=== PATIENT | female | born 1965 | race Caucasian/White ===

== ENCOUNTER 2023-01-12 14:45 | Outpatient (CLI) | payer SELFPAY ==
--- NOTE | ~2023-01-12 | XR_ITS ---
EXAMINATION: XR abdomen/kub 1V INDICATION: Constipation TECHNIQUE: Supine views of the abdomen were obtained on three radiographs. COMPARISON: None FINDINGS: A moderate volume of colonic stool is present. The bowel gas pattern is normal. There are n o dilated loops of bowel. There is mild atelectasis of the left lung base. There is a phlebolith of t he left pelvis. Mild osteitis pubis is noted. There is mild lumbar spondylosis. IMPRESSION: 1. Constipation. Reviewed, dictated and finalized at location B. IMPRESSION: 1. Constipation.
[2023-01-12 15:12] LABS: Basophils Absolute Auto 0.08 K/mm3 (0.00-0.10); Basophils Percent Auto 1.3 % (0.0-1.0); Eosinophils Absolute Auto 0.32 K/mm3 (0.02-0.50); Hematocrit 26.4 % (35.0-49.0); Immature Granulocyte Absolute 0.02 K/mm3 (0.00-0.00); Immature Granulocyte Percent A 0.3 % (0.0-0.0); Immature Platelet Fraction Pct 0.6 % (1.0-7.0); Lymphocytes Absolute Auto 2.13 K/mm3 (1.10-4.50); Lymphocytes Percent Auto 33.3 % (18.0-42.0); Mean Corpuscular HGB Conc 30.3 g/dL (32.0-36.0); Mean Corpuscular Volume 79.3 fL (78.0-102.0); Mean Platelet Volume 8.5 fl (9.2-11.8); Monocytes Absolute Auto 0.62 K/mm3 (0.10-0.90); Monocytes Percent Auto 9.7 % (2.0-11.0); Neutrophils Absolute Auto 3.2 K/mm3 (1.7-7.2); Neutrophils Percent Auto 50.4 % (50.0-70.0); Platelet Count Result 617 K/mm3 (150-420); Red Blood Count 3.33 M/mm3 (4.20-5.40); Red Cell Distribution Width 13.9 % (11.6-14.4); White Blood Count 6.4 K/mm3 (4.8-10.8)
[2023-01-12 16:00] LABS: Alanine Aminotransferase 12 U/L (14-59); Albumin Level 3.3 g/dL (3.4-5.0); Alkaline Phosphatase 129 U/L (46-116); Amylase 45 U/L (25-115); Anion Gap 10 mmol/L (8-16); Aspartate Amino Transferase 11 U/L (15-37); Bilirubin,Total 0.3 mg/dL (0.00-1.00); Blood Urea Nitrogen 14 mg/dL (7-18); Calcium 8.9 mg/dL (8.5-10.1); Carbon Dioxide 27 mmol/L (21-32); Chloride 103 mmol/L (98-108); Estimated Glomerular Filt Rate > 60; Free T4 Free Thyroxine 1.19 ng/dL (0.76-1.46); Glucose 94 mg/dL (70-99); Lipase 20 U/L (16-77); Magnesium 2.1 mg/dL (1.8-2.4); Osmolality Calculated 290 mOsm/kg (285-295); Potassium 4.4 mmol/L (3.5-5.1); Sodium 140 mmol/L (136-145); Thyroid Stimulating Hormone 2.14 uIU/mL (0.36-3.74); Total Protein 6.9 g/dL (6.4-8.2)
[2023-01-16 21:16] LABS: Vitamin D 25 Hydroxy 13 ng/mL (30-100)
== END 2023-01-12 14:46 | disposition home or self-care (01) ==
LOC: CHSLAB 14:47
PROVIDERS: PCP Nurse Practitioner Family; Visit Provider Nurse Practitioner Family
DX: K59.00 Constipation, unspecified (principal); R19.5 Other fecal abnormalities; R11.2 Nausea with vomiting, unspecified; R39.198 Other difficulties with micturition; L65.9 Nonscarring hair loss, unspecified; Z79.899 Other long term (current) drug therapy
CPT/HCPCS: 36415; 74018; 80053; 82150; 82306; 83690; 83735; 84439; 84443; 85025; 85055

== ENCOUNTER 2023-01-13 12:08 | Outpatient (CLI) | payer SELFPAY ==
[2023-01-13 12:48] LABS: Occult Blood Positive (Negative)
== END 2023-01-13 12:09 | disposition home or self-care (01) ==
LOC: CHSLAB 12:10
PROVIDERS: PCP Nurse Practitioner Family; Visit Provider Nurse Practitioner Family
DX: R19.5 Other fecal abnormalities (principal); L65.9 Nonscarring hair loss, unspecified
CPT/HCPCS: 82272; 87045; 87427; 87449

== ENCOUNTER 2023-03-10 11:26 | Outpatient (CLI) | payer OTHER, SELFPAY ==
[2023-03-10 12:53] LABS: Alanine Aminotransferase 16 U/L (14-59); Albumin Level 3.3 g/dL (3.4-5.0); Alkaline Phosphatase 96 U/L (46-116); Anion Gap 8 mmol/L (8-16); Aspartate Amino Transferase 10 U/L (15-37); Bilirubin,Total 0.4 mg/dL (0.00-1.00); Blood Urea Nitrogen 14 mg/dL (7-18); Carbon Dioxide 27 mmol/L (21-32); Chloride 104 mmol/L (98-108); Estimated Glomerular Filt Rate > 60; Ferritin 5 ng/mL (8-252); Glucose 104 mg/dL (70-99); Iron 11 ug/dL (50-170); Osmolality Calculated 288 mOsm/kg (285-295); Percent Iron Saturation 3 % (12-57); Potassium 4.2 mmol/L (3.5-5.1); Sodium 139 mmol/L (136-145); Vitamin B12 1917 pg/mL (193-986)
== END 2023-03-10 11:27 | disposition home or self-care (01) ==
LOC: CHSLAB 11:30
PROVIDERS: PCP Nurse Practitioner Family; Visit Provider Nurse Practitioner Family
DX: D64.9 Anemia, unspecified (principal)
CPT/HCPCS: 36415; 80053; 82607; 82728; 82746; 83540; 83550

== ENCOUNTER 2025-01-29 10:37 | Emergency (ER) | payer SELFPAY ==
--- OUTSIDE RECORDS SUMMARY | 2012-07-27 08:00 | XMS_ITS | Continuity of Care Document ---
Author Organization [facility] Address [address] [place] [address] Phone Care Team Providers Care Sugar Sampler Name Role Phone Eliza Maldonado MD Unavailable Unavailabl e Allergies, Adverse Reactions, Alerts Substance Reaction Status Criticality No Known allergies Procedures Procedure Date MU Reporting OFFICE/OUTPATIENT VISIT EST MU Reporting OFFICE/OUTPATIENT VISIT EST MU Reporting OFFICE/OUTPATIENT VISIT EST MU Reporting OFFICE/OUTPATIENT VISIT NEW Advance Directives Directive Yes / No Effective Date File Name Resuscitation Not Answered N/A N/A Life Support Not Answered N/A N/A Intubation Not Answered N/A N/A Antibiotics Not Answered N/A N/A IV Fluid Support Not Answered N/A N/A Tube Feed Not Answered N/A N/A Other Directive N/A N/A WARNING:The information contained in this section is historical and is provided for information only and does not constitute a legal document or any assurance that the information is still accurate. Please verify the information with the grimm of the legal document before using it for clinical purposes. Encounters Encounter Description Practice Location Reason(s) For Visit Diagnoses Date Provider Providers Copied on Encounter OFFICE/OUTPAT IENT VISIT EST [facility] , [address], [place], [address], [place] tel:[phone] [facility] Rt knee pain (chief complaint) Effusion of lower leg jointPain in joint involving lower legSprain of medial collateral ligament of kneeSprain of unspecified site of knee and leg [address]. [address] , [place], [place], [id number] . tel: [phone] Referring Provider: [address], [place], [address]. tel:[phone] OFFICE/OUTPAT IENT VISIT EST [facility] , [address] [address], [place], [address], [place] tel:[phone] [facility] Rt knee pain (chief complaint) Effusion of lower leg jointPain in joint involving lower legSprain of medial collateral ligament of kneeSprain of unspecified site of knee and leg 3 [address] [place]. [address] , [place], [place], [address] . tel: [phone] Referring Provider: [address], [place], [address]. tel:[phone] OFFICE/OUTPAT IENT VISIT EST [facility] , [address] [address], [place], [address], [place] tel:[phone] [facility] Effusion of lower leg jointPain in joint involving lower legSprain of medial collateral ligament of kneeSprain of unspecified site of knee and leg 2 [address] [place]. [address] [facility] [address] , [place], [place], [id number] . tel: [phone] Referring Provider: [address], [place], [address]. tel:[phone] OFFICE/OUTPAT IENT VISIT NEW [facility] , [address] [address], [place], [address], [place] tel:[phone] [facility] Pain in joint involving lower legSprain of medial collateral ligament of kneeSprain of unspecified site of knee and legEffusion of lower leg joint [address] [place]. [address] [facility] [address] , [place], [place], [id number] . tel: [phone] Referring Provider: [address], [place], [address]. tel:[phone] Family History Family Member Type Diagnosis Age At Onset Problem (finding) Family history of Heart disease Problem (finding) Family history of hyper tension Problem (finding) Family history of diverticulitis of colon Problem (finding) Family history of Diabe rajat mellitus Payers Payer name Insurance type Covered alliance party ID Authoriza tion(s) No Information Social History Type Description Quantity Date Captured Comments Alcohol Use Details Unknown Caffeine Use Details Unknown Tobacco Use Status No Information Smoking Status Never smoker Sex Female Chief Complaint And Reason For Visit From encounter dated '07/27/2012 13:00'. Rt knee pain (chief complaint) Reason For Referral Reason For Referral No Information Plan Of Treatment Date Type Action Status Referral Ordered: RADEX KNE 1/2 VIEWS RT ordered History Of Present Illness Encounter Date Complaint History Of Prese nt Illness No Information Functional Status Date Functional Assessmen t No Information Instructions Date Instruction Additional Infor prakash Physical activity counseling Rel ated to Dietary Surveillance counseling Activity as tolerated Physical activity counseling Rel ated to Dietary Surveillance counseling Activity as tolerated Activity as tolerated Physical activity counseling Rel ated to Dietary Surveillance counseling Physical activity counseling Rel ated to Dietary Surveillance counseling Activity as tolerated Assessments Type Assessment Date No Information Patient Care Teams Name Effective Dates (start - stop) Status Members No Information
--- OUTSIDE RECORDS SUMMARY | 2012-07-27 08:00 | XMS_ITS | Continuity of Care Document ---
Author Organization [facility] Address [address] [place] [address] Phone Care Team Providers Care First Aid Director Name Role Phone Eliza Maldonado MD Unavailable [...] Copied on Encounter OFFICE/OUTPAT IENT VISIT EST [facility] , [address], [place], [address], [place] tel:[phone] [facility] Rt knee pain (chief complaint) Effusion of lower leg jointPain in joint involving lower legSprain of medial collateral ligament of kneeSprain of unspecified site of knee and leg 3 [address] , [place], [place], [id number] . tel: [phone] Referring Provider: [address], [place], [address]. tel:[phone] OFFICE/OUTPAT IENT VISIT EST [facility] , [address] [address], [place], [address], [place] tel:[phone] [facility] Rt knee pain (chief complaint) Effusion of lower leg jointPain in joint involving lower legSprain of medial collateral ligament of kneeSprain of unspecified site of knee and leg 3 [address] [place]. [address] , [place], [place], [address] . tel: [phone] Referring Provider: [address], [place], [address]. tel:[phone] OFFICE/OUTPAT IENT VISIT EST [facility] , [address] [address], [place], [address], [place] tel:[phone] [facility] Effusion of lower leg jointPain in joint involving lower legSprain of medial collateral ligament of kneeSprain of unspecified site of knee and leg 2 [address] [place]. [address] [facility] [address] , [place], [place], [id number] . tel: [phone] Referring Provider: [address], [place], [address]. tel:[phone] OFFICE/OUTPAT IENT VISIT NEW [facility] , [address] [address], [place], [address], [place] tel:[phone] [facility] Pain in joint involving lower legSprain of medial collateral ligament of kneeSprain of unspecified site of knee and legEffusion of lower leg joint [address] [place]. [address] [facility] [address] , [place], [place], [address] . tel: [phone] Referring Provider: [address], [place], [address]. tel:[phone] Family History Family Member Type Diagnosis Age At Onset Problem (finding) Family history of Heart disease Problem (finding) Family history of hyper tension Problem (finding) Family history of diverticulitis of colon Problem (finding) Family history of Diabe rajat mellitus Payers Payer name Insurance type Covered green party ID Authoriza tion(s) No Information Social [...]
--- NOTE | ~2025-01-29 | XR_ITS ---
EXAM/ PROCEDURE: XR knee LT min 4V - 01/29/2025 11:15 CDT HISTORY: 59 years old Female with left knee pain, heard a pop, lateral to posterior pain COMPARISON: None available TECHNIQUE: Three view(s) FINDINGS/ IMPRESSION: There are no fractures or dislocations.Joint space narrowing, subchondral sclerosis, subchondral cyst formation and osteophyte formation, compatible with mild osteoarthritis. Reviewed, dictated and finalized at location N.
[2025-01-29 10:42] VITALS: BP 124/96; PULSE 76; RESP 17; TEMP 36.6; O2SAT 97
[2025-01-29 10:51] VITALS: BP 128/96; PULSE 72; RESP 17; TEMP 36.6; O2SAT 97
--- NOTE | 2025-01-29 11:05 | ED.LOWEXIN ---
HPI - Extremity Injury (Lower) General Chief Complaint: Extremity Injury, Lower Stated Complaint: left knee pain Time Seen by Provider: 01/29/25 10:42 Source: patient Mode of arrival: ambulatory Limitations: no limitations History of Present Illness HPI Narrative: This is a 59-year-old female that presents to the emergency department for left knee pain. Reports the knee has been bothering her for couple of days. She stepped up onto a platform yesterday though and felt a pop in the knee. Has had worsening pain since. Denies fevers, erythema, edema. Related Data Home Medications ?Medication ?Instructions ?Recorded ?Confirmed ?Last Taken ?Type multivitamin (Daily Multi-Vitamin 1 tablet PO DAILY 02/06/23 02/06/23 Unknown History tablet) Allergies Allergy/AdvReac Type Severity Reaction Status Date / Time No Known Allergies Allergy Verified 01/29/25 10:52 Review of Systems Review of Systems: All systems reviewed & are unremarkable except as noted in HPI and below PMFSH Past Medical History Medical History (Updated 01/29/25 @ 11:30 by Lady Davenport PA-C) Left lower quadrant abdominal pain Hemorrhoids Rectal bleeding Anemia Plantar fasciitis Kidney stones Foot pain Family History Family History Mother Diabetes mellitus Father CAD (coronary artery disease) Acute myocardial infarction Sibling Hypertension Mother Family history of type 2 diabetes mellitus Hypertension Social History Social History (Updated 01/12/23 @ 14:14 by Mona Levine MA) Smoking status: Never smoker Alcohol intake: current Alcohol use details: social Substance use: never Substance use type: does not use Lack of Transportation: No Lack of Food: Never True Current Housing: I Have Housing Concerned About Future Housing: No Difficulty Paying Gas/Electric Bills: No Difficulty Paying for Meds: No Currently Unemployed: No Education: High School Diploma/GED Living arrangements: with family Additional living arrangements comments: mother Occupation/Education: occupation Additional occupation/education comments: [employer] Gender identity (if verbalized by the patient): Female Exam Narrative: GENERAL: Well-appearing, well-nourished, and in no acute distress. HEAD: Normocephalic, atraumatic. EYES: EOMI. EXTREMITIES: Normal range of motion. No edema or erythema. Normal DP pulse. Normal sensation SKIN: Warm, dry, no rash. NEURO: No focal deficits. Alert and oriented x3. PSYCH: Normal mood and affect Course Vital Signs Vital signs: Vital Signs Temperature 97.9 F 01/29/25 10:42 Pulse Rate 76 01/29/25 10:42 Respiratory Rate 17 01/29/25 10:42 Blood Pressure 124/96 H 01/29/25 10:42 Pulse Oximetry 97 01/29/25 10:42 Oxygen Delivery Room Air 01/29/25 10:42 Temperature 97.9 F 01/29/25 10:51 Pulse Rate 72 01/29/25 10:51 Respiratory Rate 17 01/29/25 10:51 Blood Pressure 128/96 H 01/29/25 10:51 Pulse Oximetry 97 01/29/25 10:51 Oxygen Delivery Room Air 01/29/25 10:42 MDM - Extremity Injury (Lower) MDM Narrative Medical decision making narrative: Patient presents to the emergency department for left knee pain. Ongoing over the last couple of days. Reports worsening after stepping up onto a platform feeling a pop. No erythema, edema on exam. She is afebrile and nontoxic appearing. She is neurovascularly intact. Knee x-ray showing findings of osteoarthritis. Will be given follow-up with Orthopedics. She was given warnings to return to the ER Differential Diagnosis Differential diagnosis: Likely acute internal derangement of knee and other (osteoarthritis) Imaging Data Radiologist's impression: EXAM/ PROCEDURE: XR knee LT min 4V - 01/29/2025 11:15 CDT HISTORY: 59 years old Female with left knee pain, heard a pop, lateral to posterior pain COMPARISON: None available TECHNIQUE: Three view(s) FINDINGS/ IMPRESSION: There are no fractures or dislocations.Joint space narrowing, subchondral sclerosis, subchondral cyst formation and osteophyte formation, compatible with mild osteoarthritis. Critical Care Time Critical Care Time Critical Care Time: No Discharge Plan Discharge Clinical Impression: Acute pain of left knee, Osteoarthritis Patient Disposition: Home Condition: Stable Instructions: Arthritis (ED) Additional Instructions: Return to the ER if you experience fever, redness and swelling of your extremity, numbness or any other symptoms that are concerning to you Wear ELIAS wrap and use crutches as needed. Ice and elevate extremity. Pain medication as needed and directed. Follow up with orthopedics for further care. Patient Language: Salvadorean Prescriptions: No Action multivitamin [Daily Multi-Vitamin] Tablet 1 tablet PO DAILY hydrocortisone [Anusol-HC] 2.5 % cream with perineal applicator 1 applic RECTAL BID Qty: 30 0RF Rx Instructions: apply to rectum twice a day for no more then 2 weeks. magnesium hydroxide [Milk of Magnesia] 400 mg/5 mL suspension 30 ml PO DAILY PRN (Reason: constipation) Qty: 355 2RF ferrous sulfate 325 mg (65 mg iron) tablet,delayed release (DR/EC) 325 mg PO BID Qty: 60 2RF cholecalciferol (vitamin D3) 1,250 mcg (50,000 unit) capsule See Rx Instructions .ROUTE .COMPLEX Qty: 12 0RF Dose Instruction: TAKE 1 CAPSULE BY MOUTH WEEKLY Rx Instructions: TAKE 1 CAPSULE BY MOUTH WEEKLY Follow-up/Referrals: Laureen Wood NP [Primary Care Provider, Family Practice] Bart Gay MD [Physician, Orthopedics]
--- OUTSIDE RECORDS SUMMARY | 2025-01-29 12:01 | XMS_ITS | Clinical Summary ---
Author Organization [facility] Address [address] [place] [address] Care Team Providers Care Sewer Bricklayer Name Role Phone Unavailable Primary Care Provider Unavailabl e Social History Tobacco Use Types Packs/Day Years Used Date Smoking Tobacco: Never Assessed Comments Unknown Sex and Gender Information Value Date Recorded Sex Assigned at Not on file Legal Sex Female 9:28 PM CDT Gender Identity Not on file Sexual Orientation Not on file Plan of Treatment Health Maintenance Due Date Last Done Comments Cervical Cancer Screening Pa p Smear (Age 30 to 64) Every 3 Years 1965 Colorectal Cancer Screening Colonoscopy (10 Years) 1965 Annual Physical 1968 Hepatitis C 12/05/1983 DTaP, Tdap and Td Vaccines ( 1 - Tdap) 1984 Cervical Cancer Screening Pa p with HPV Testing (Age 30 to 64) Every 5 Years 12/05/1995 Cervical Cancer Screening with HPV 12/05/1995 Mammogram Screening 2005 Pneumococcal Vaccine: 50+ Ye ars (1 of 1 - PCV) 12/05/2015 Zoster Vaccines (1 of 2) 12/05/2015 COVID-19 Vaccine (2023-2 5 season) 2024 Meningococcal B Vaccine Aged Out No l onger eligible based on patient's age to complete this topic Meningococcal Vaccine Aged Out No rin lydia eligible based on patient's age to complete this topic RSV Immunizations Under 20 Months Aged Out No longer eligible based on patient's age to complete this topic
--- OUTSIDE RECORDS SUMMARY | 2025-01-29 12:25 | XMS_ITS | Clinical Summary ---
Author Organization [facility] Address [address] [place] [address] Care Team Providers Care Administrative Specialist Name Role Phone Unavailable Primary Care Provider [...]
--- OUTSIDE RECORDS SUMMARY | 2025-01-29 12:25 | XMS_ITS | Patient Health Record ---
Author Organization [facility] Address [address] [place], [place] [id number] Care Team Providers Care Area Secretary Name Role Phone AUSTIN Nye Unavailable [phone] Abel Pina Unavailable Unavailable Reason For Referral No Information Plan Of Treatment No Information Insurance Providers Payer Name Payer Address Payer Phone Subscriber Number Group Number Insured Name Patient Relationship to Insured Coverage Start Date Coverage End Date [facility] ([facility]) ATTN CLAIMS [address] [place] [address] [id number] SUKHJINDER ZUNIGA Self - patient is the insured
== END 2025-01-29 11:56 | disposition home or self-care (01) ==
PROVIDERS: Emergency Provider Physician Assistant; PCP Nurse Practitioner Family
DX: M25.562 Pain in left knee (principal); M17.12 Unilateral primary osteoarthritis, left knee; Z87.442 Personal history of urinary calculi; Z86.2 Personal history of diseases of the blood and blood-forming organs and certain disorders involving the immune mechanism
CPT/HCPCS: 73564; 99283